=== PATIENT | male | born 1995 | race Caucasian/White ===

== ENCOUNTER 2021-12-08 16:59 | Emergency (ER) | payer OTHER ==
[~2021-12-08] VITALS: Ht 160 cm; Wt 61.4 kg
[2021-12-08 17:00] VITALS: BP 141/64
== END 2021-12-08 19:04 | disposition left against medical advice (07) ==
LOC: EDBD 17:02 → EMS 17:02
DX: Z53.21 Procedure and treatment not carried out due to patient leaving prior to being seen by health care provider (principal)